=== PATIENT | male | born 1965 | race Caucasian/White ===

== ENCOUNTER → 2016-07-08 | Outpatient (CLI) | payer OTHER ==
--- NOTE | 2016-07-08 10:23 | RAD ---
Cervical spine, 3 views, 07/08/2016: History: Neck pain, disability determination There is mild marginal spurring at C5-6 and C6-7. There is minimal narrowing of the C6-7 disc space. There are mild degenerative changes involving scattered facet joints bilaterally. No fracture or dislocation is identified. The prevertebral soft tissues are unremarkable. IMPRESSION: 1. Mild degenerative change as described above. 2. No acute abnormality is detected. Lumbar spine, 3 views, 07/08/2016: History: Back pain, neuropathy, previous injury The lumbar vertebral heights are well-maintained. There are mild to moderate scattered marginal spurs. There are mild degenerative changes involving scattered facet joints. There is a slight reverse spondylolisthesis at L2-3, apparently due to facet joint arthropathy. No fracture is identified. There is minimal aortic calcific plaquing. IMPRESSION: 1. Mild to moderate scattered degenerative changes as described above. 2. Slight reverse spondylolisthesis at L2-3 due to facet joint arthropathy.
== END | disposition home or self-care (01) ==
LOC: RAD 09:33
PROVIDERS: ATTEND Surgery
DX: M54.9 Dorsalgia, unspecified (principal); G62.9 Polyneuropathy, unspecified
CPT/HCPCS: 72040; 72100

== ENCOUNTER → 2020-08-22 | Outpatient (CLI) | payer OTHER ==
--- NOTE | 2020-08-23 09:44 | RAD ---
XR LUMBAR SPINE 2-3V History: Reason: BACK PAIN, DISABILITY DETERMINATION / Spl. Instructions: / History: Technique: 2 views lumbar spine. Comparison: July 08, 2016 Findings: Slight retrolisthesis L4 on L5 and L3 on L4 as well as L2 on L3. Normal vertebral body height. No fra cture. Chronic anterior vertebral body wedging within the lower thoracic upper lumbar spine. No acute fracture. Moderate degenerative disc changes most prominent L5-S1. Overall degenerative findings are progressed compared to 2017. Impression: 1. Moderate multilevel lumbar spondylosis most prominent L4-5 and L5-S1, progressed compared to 2017 . Electronically signed by: Parmjit Lepe DO (08/23/2020 9:42 AM) [id number]
--- NOTE | 2020-08-23 09:47 | RAD ---
XR KNEE_RT 1-2 VIEWS History: Reason: / Spl. Instructions: / History: Pain Technique: 2 views right knee Comparison: None. Findings: Normal alignment. No fracture. No significant knee joint effusion. Mild patellar spurring. Impression: 1. No acute osseous abnormality. Electronically signed by: Parmjit Lepe DO (08/23/2020 9:44 AM) [id number]
--- NOTE | 2020-08-23 09:47 | RAD ---
XR KNEE_LT 1-2 VIEWS History: Reason: LOW BACK PAIN AND BILATERAL KNEE PAIN. / Spl. Instructions: / History: Technique: 2 views left knee Comparison: None. Findings: Normal alignment. No fracture. No significant joint effusion. Impression: 1. No acute osseous abnormality. Electronically signed by: Parmjit Lepe DO (08/23/2020 9:45 AM) [id number]
== END ==
LOC: RAD 14:06
PROVIDERS: ATTEND Surgery
DX: Z02.71 Encounter for disability determination (principal); M47.816 Spondylosis without myelopathy or radiculopathy, lumbar region; M51.37 Other intervertebral disc degeneration, lumbosacral region; M76.891 Other specified enthesopathies of right lower limb, excluding foot
CPT/HCPCS: 72100; 73560